=== PATIENT | female | born 1985 | race Hispanic/Latino ===

== ENCOUNTER 2018-03-20 20:15 | Emergency (ER) | payer MEDICAID, SELFPAY ==
[2018-03-20] MEDS ORDERED: Ketorolac Tromethamine 30 MG/ML VIAL ONE (20:52)
[2018-03-20] MEDS ORDERED: Dexamethasone 4 mg/ml Vial ONE (20:52)
[2018-03-20] MEDS ORDERED: Bicillin LA 1.2 MILLION UNITS/2 ML SYRINGE ONE (21:16)
== END 2018-03-20 22:38 | disposition home or self-care (01) ==
LOC: ERS 20:15
DX: J02.0 Streptococcal pharyngitis (principal)
CPT/HCPCS: 87430; 96372; J0561; J1100; J1885